=== PATIENT | male | born 2000 | race Hispanic/Latino ===

== ENCOUNTER 2021-01-21 11:16 | Emergency (ER) | payer BC ==
[~2021-01-21] VITALS: Ht 180.3 cm; Wt 129.3 kg
[2021-01-21] MEDS ORDERED: IBUPROFEN 400 MG TAB PO ONE (12:15)
== END 2021-01-21 14:45 | disposition home or self-care (01) ==
LOC: ER 13:00
DX: S22.32XA Fracture of one rib, left side, initial encounter for closed fracture (principal); W11.XXXA Fall on and from ladder, initial encounter; Y92.017 Garden or yard in single-family (private) house as the place of occurrence of the external cause
CPT/HCPCS: 71101; 72040; 72072; 99284